=== PATIENT | male | born 1955 | race Two or more races ===

== ENCOUNTER 2020-12-18 16:35 | Inpatient (IN) | payer BC, OTHER ==
[2020-12-18] MEDS ORDERED: HYDROCODONE/ACETAMINOPHEN 5-325 MG TABLET PO ONE ×2 (16:54→21:00)
[2020-12-18] MEDS ORDERED: DIPH/PERTUSS(ACELL)/TETANUS VAC/PF 0.5 ML SYR (>=10YO) IM ONE ×2 (16:56→21:00)
--- NOTE | 2020-12-18 16:59 | ER Document Report ---
ED Medical Screen (RME) - General Chief Complaint: Foot Pain Stated Complaint: RIGHT FOOT PAIN Time Seen by Provider: 12/18/20 16:49 Primary Care Provider: MELO SOLORIO DPM [Primary Care Provider] - Follow up as needed - [facility] Notes: 12/18/20 16:55 65-year-old male presents to the emergency room today with right foot pain for the last 5 days with redness that has extended to his mid lower leg. Patient states he has a "hole at the bottom of my foot". Denies any trauma, any puncture wounds. She is unsure of his last tetanus shot. Patient states pain is shooting, intermittent and is 4 out of 5, worse when he is bearing weight. Patient is able to bear full weight. Patient was seen by his rig builder helper and advised to come to the emergency room. Patient denies any history of diabetes, hypertension or cholesterol. Patient reports 20 years ago or so he had surgery to his right second and third tarsal, he is unsure of what they did. Patient states he did take a Motrin this morning without relief. Reports there was pus coming from wound this morning. I have greeted and performed a rapid initial assessment of this patient. A comprehensive ED assessment and evaluation of the patient, analysis of test results and completion of the medical decision making process will be conducted by additional ED providers. PHYSICAL EXAMINATION: GENERAL: Well-appearing, well-nourished and in no acute distress. CV: s1, s2 regular LUNGS: No respiratory distress Musculoskeletal: Normal range of motion NEUROLOGICAL: Normal speech, normal gait. SKIN: Warm, Dry, normal turgor, no rashes or lesions noted. Plantar aspect of right foot with a 0.5cm x 0.5 cm wound with purulent drainage. No surrounding erythema induration. Distal pulses +2 bilaterally equally. Right foot erythema extends to right lower mid leg. Homans' sign is negative. The patient was evaluated during a global COVID-19 pandemic and that diagnosis was suspected/considered upon their initial presentation. Their evaluation, treatment and testing was consistent with current guidelines for patients who present with complaints or symptoms and may be related to COVID-19. Physical Exam - Vital signs Vitals: Temp Pulse Resp BP Pulse Ox 99.8 F 103 H 20 167/77 H 99 12/18/20 16:47 12/18/20 16:47 12/18/20 16:47 12/18/20 16:47 12/18/20 16:47 Course - Vital Signs Vital signs: Temp Pulse Resp BP Pulse Ox 99.8 F 103 H 20 167/77 H 99 12/18/20 16:47 12/18/20 16:47 12/18/20 16:47 12/18/20 16:47 12/18/20 16:47 Doctor's Discharge - Discharge Referrals: MELO SOLORIO DPM [Primary Care Provider] - Follow up as needed
--- NOTE | 2020-12-18 17:41 | RADIOLOGY REPORT (SQ) ---
EXAM DESCRIPTION: FOOT RIGHT COMPLETE IMAGES COMPLETED DATE/TIME: 12/18/2020 5:13 pm REASON FOR STUDY: posterior foot with tunneling, erythema, swelling COMPARISON: None. NUMBER OF VIEWS: Three views. TECHNIQUE: AP, lateral and oblique radiographic images acquired of the right foot. LIMITATIONS: None. FINDINGS: MINERALIZATION: Normal. BONES: No acute fracture or dislocation. No worrisome bone lesions. JOINTS: There appears to be subluxation of the 4th metatarsal phalangeal joint. SOFT TISSUES: Dorsal soft tissue swelling. OTHER: No other significant finding. IMPRESSION: Subluxation of the 4th metatarsal phalangeal joint. No acute osseous finding. Dorsal s oft tissue swelling. TECHNICAL DOCUMENTATION: JOB ID: [id number] 2010 [employer]- All Rights Reserved Reading location - IP/workstation name: [email or web address]
[2020-12-18 17:55] LABS: ABSOLUTE BASOPHILS # (AUTO) 0.1 10^3/uL (0.0-0.2); ABSOLUTE LYMPHOCYTES (AUTO) 1.1 10^3/uL (0.5-4.7); ABSOLUTE MONOCYTES (AUTO) 1.2 10^3/uL (0.1-1.4); ABSOLUTE NEUT (AUTO) 16.7 10^3/uL (1.7-8.2); BASOPHILS % (AUTO) 0.5 % (0-2); EOSINOPHILS % (AUTO) 0.2 % (0-6); HEMATOCRIT 43.7 % (37.9-51.0); LYMPHOCYTES % (AUTO) 5.8 % (13-45); MEAN CORPUSCULAR HGB CONC 34.3 g/dL (32.0-36.0); MEAN CORPUSCULAR VOLUME 90 fl (80-97); PLATELET COUNT 260 10^3/uL (150-450); RED BLOOD COUNT 4.84 10^6/uL (4.35-5.55); RED CELL DISTRIBUTION WIDTH 12.8 % (11.5-14.0); SEGMENTED NEUTROPHILS % (AUTO) 87.5 % (42-78); TOTAL CELLS COUNTED % (AUTO) 100 %; WHITE BLOOD COUNT 19.2 10^3/uL (4.0-10.5)
[2020-12-18 18:01] LABS: ALBUMIN 3.6 g/dL (3.5-5.0); ALKALINE PHOSPHATASE 96 U/L (38-126); ANION GAP 7 (5-19); ASPARTATE AMINO TRANSFERASE 49 U/L (17-59); BILIRUBIN,DIRECT 0.2 mg/dL (0.0-0.4); BILIRUBIN,TOTAL 0.8 mg/dL (0.2-1.3); BLOOD UREA NITROGEN 12 mg/dL (7-20); CALCIUM 9.5 mg/dL (8.4-10.2); CARBON DIOXIDE 31 mmol/L (22-30); CHLORIDE 99 mmol/L (98-107); GLUCOSE 111 mg/dL (75-110); POTASSIUM 4.6 mmol/L (3.6-5.0); TOTAL PROTEIN 6.9 g/dL (6.3-8.2)
--- NOTE | 2020-12-18 18:33 | RADIOLOGY REPORT (SQ) ---
EXAM DESCRIPTION: VENOUS UNILATERAL LOWER IMAGES COMPLETED DATE/TIME: 12/18/2020 6:25 pm REASON FOR STUDY: Right mid lower leg w/ swelling/erythema x1w COMPARISON: None. TECHNIQUE: Dynamic and static aponte scale and color images acquired of the right leg venous system. S elected spectral images acquired with additional compression and augmentation maneuvers. The contrala teral common femoral vein and saphenofemoral junction were also imaged. Images stored on PACS. LIMITATIONS: None. FINDINGS: COMMON FEMORAL: Normal phasicity, compression and augmentation. No visualized echogenic ma terial on aponte scale. No defects on color images. FEMORAL: Normal compression and augmentation. No visualized echogenic material on aponte scale. No defe cts on color images. POPLITEAL: Normal compression, augmentation. No visualized echogenic material on aponte scale. No defec ts on color images. CALF VESSELS: Normal compression, augmentation. No visualized echogenic material on aponte scale. No de fects on color images. GSV and SSV: Normal compression, augmentation. No visualized echogenic material on aponte scale. No def ects on color images. ANY DEEP VENOUS INSUFFICIENCY: Not evaluated. ANY EVIDENCE OF POPLITEAL CYST: No. OTHER: No other significant finding. CONTRALATERAL COMMON FEMORAL VEIN AND SAPHENOFEMORAL JUNCTION: Normal phasicity, compression and augmentation. No visualized echogenic material on aponte scale. No de fects on color images. IMPRESSION: NO EVIDENCE DVT OR SVT IN THE RIGHT LEG. TECHNICAL DOCUMENTATION: JOB ID: [id number] 2010 [employer]- All Rights Reserved Reading location - IP/workstation name: [email or web address]
--- NOTE | 2020-12-18 20:56 | ER Document Report ---
ED General - General Chief Complaint: Foot Pain Stated Complaint: RIGHT FOOT PAIN Time Seen by Provider: 12/18/20 16:49 - HPI Notes: 65-year-old male presents with ulcer to the bottom of his right foot. Patient states that he had a history of "dropped bone", he received a surgery about 20 years ago to correct the bone abnormality and really not have any issues with it aside from the past year. Patient states in the past year to 1.5 year he has had an ulcer develop in the same spot, which is at the plantar aspect of the fou rt toe. He states that for the past 3 weeks to 1 month the area has grown in size and is now a "hole", he has developed redness to his lower leg, and the wound is very foul-smelling, stating that when he takes off his boots he can barely stand the smell. He has never been on any antibiotics for this. Patient states that he does not have any medical history, though this is because he really does not see any doctors. He was complaining of pain and unable to work, which prompted a visit to a flooring sales manager today, patient states that the doctor took one look at it and sent him to the emergency department. - Related Data Allergies/Adverse Reactions: No Known Allergies Allergy (Verified 12/18/20 21:35) Past Medical History - General Information source: Patient - Social History Smoking Status: Current Every Day Smoker Frequency of alcohol use: Social Family History: Reviewed & Not Pertinent Review of Systems - Review of Systems Constitutional: denies: Chills, Fever EENT: No symptoms reported Cardiovascular: denies: Chest pain Respiratory: denies: Short of breath Gastrointestinal: denies: Abdominal pain Genitourinary: No symptoms reported Male Genitourinary: No symptoms reported Musculoskeletal: Joint swelling Skin: See HPI Hematologic/Lymphatic: No symptoms reported Neurological/Psychological: No symptoms reported Physical Exam - Vital signs Vitals: Temp Pulse Resp BP Pulse Ox 99.8 F 103 H 20 167/77 H 99 12/18/20 16:47 12/18/20 16:47 12/18/20 16:47 12/18/20 16:47 12/18/20 16:47 - General General appearance: Appears well, Alert In distress: None - HEENT Head: Normocephalic, Atraumatic Extraocular movements intact: Yes Pupils: PERRL - Respiratory Breath sounds: Normal - Cardiovascular Rhythm: Regular Heart sounds: Normal auscultation Pulses: Normal: Dorsalis pedis - Abdominal Inspection: Obese Tenderness: Nontender - Extremities Notes: There is an ulcer present to the plantar aspect of right foot, overlying fourth metatarsal head region. Bone is visible. Foul-smelling, serosanguineous discharge. There is erythema to the dorsum of the right foot extending above the ankle - Neurological Neuro grossly intact: Yes Cognition: Normal Orientation: AAOx4 - Psychological Associated symptoms: Normal affect - Skin Skin Temperature: Warm Course - Re-evaluation Re-evalutation: 65-year-old male presents with ulcer to the right foot, present for over 1 year, however foul-smelling drainage and increase in depth for the past 3 weeks to 1 month. On exam there is an ulcer present, bone is visible, there is a foul- smelling serosanguineous discharge. Wound culture collected. There is some cellulitic changes to the distal right leg as well. Leg is well perfused. Patient denies history of diabetes, the really does not see any doctors, I will add on an A1c to see if there is evidence of underlying DM. Will start with broad-spectrum coverage of Vanco Zosyn. Clinically I am concerned for an osteomyelitis. Afebrile, hemodynamically stable. Leukocytosis with left shift, elevated CRP present. Reviewed the triage process, patient on ultrasound done which is negative for DVT and a foot x-ray done which is negative for osseous abnormality. 12/18/20 23:08 A1c 5.1 12/18/20 23:[address] Tong, will see in consultation 12/18/20 23:[address] Retana for admission - Vital Signs Vital signs: Temp Pulse Resp BP Pulse Ox 98.9 F 92 19 157/76 H 98 12/18/20 22:54 12/18/20 22:54 12/18/20 22:54 12/18/20 22:54 12/18/20 22:54 - Laboratory Results Result Diagrams: 12/18/20 16:05 12/18/20 16:05 Laboratory Results Interpreted: 12/18/20 12/18/20 12/18/20 16:05 16:05 16:05 WBC 19.2 H Lymph % (Auto) 5.8 L Absolute Neuts (auto) 16.7 H Seg Neutrophils % 87.5 H Sodium 136.5 L Carbon Dioxide 31 H Glucose 111 H C-Reactive Protein 162.4 H Critical Laboratory Results Reviewed: No Critical Results - Radiology Results Critical Radiology Results Reviewed: No Critical Results Discharge - Discharge Clinical Impression: Cellulitis of right leg Foot ulcer with necrosis of bone Qualifiers: Laterality: right Qualified Code(s): 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
[2020-12-18] MEDS ORDERED: KETOROLAC TROMETHAMINE INJ/PF 30 MG/1 ML SDV IV ONE (21:23)
[2020-12-18] MEDS ORDERED: VANCOMYCIN HCL INJ 1000 MG VIAL IV ONE (21:25)
[2020-12-18] MEDS ORDERED: PIPERACILLIN/TAZOBACTAM 3.375 GM VIAL IV ONE (21:26)
--- NOTE | 2020-12-18 23:57 | PDOC CONSULTATION ---
Consultation Consult Date: 12/18/20 Attending physician:: MYRON RODGERS Provider Consulted: KEMAR CASTORENA Consult reason:: foot ulcer History of Present Illness Admission Date/PCP: 12/18/20 23:29 MELO SOLORIO DPM History of Present Illness: COLEMAN STAHL is a 65 year old male6 presents with ulcer to the bottom of his right foot. Patient states that he had a history of "dropped bone", he received a surgery about 20 years ago to correct the bone abnormality and really not have any issues with it aside from the past year. Patient states in the past year to 1.5 year he has had an ulcer develop in the same spot, which is at the plantar aspect of the fourth toe. He states that for the past 3 weeks to 1 month the area has grown in size and is now a "hole", he has developed redness to his lower leg, and the wound is very foul-smelling, stating that when he takes off his boots he can barely stand the smell. He has never been on any antibiotics for this. Patient states that he does not have any medical history, though this is because he really does not see any doctors. He was complaining of pain and unable to work, which prompted a visit to a bioinformatics technician today, patient states that the doctor took 1 look at it and sent him to the emergency department Past Surgical History Past Surgical History: Reports: Other - foot surgery Social History Smoking Status: Current Every Day Smoker Family History Parental Family History Reviewed: No Children Family History Reviewed: NA Sibling(s) Family History Reviewed.: NA Medication/Allergy Allergies/Adverse Reactions: No Known Allergies Allergy (Verified 12/18/20 21:35) Review of Systems Constitutional: PRESENT: fatigue Eyes: ABSENT: as per HPI, visual disturbances, other Ears: ABSENT: as per HPI, hearing changes, other Nose, Mouth, and Throat: ABSENT: as per HPI, headache(s), mouth pain, sore throat, vertigo, other Breasts: ABSENT: as per HPI, other Respiratory: ABSENT: as per HPI, cough, dyspnea, hemoptysis, sputum, other Gastrointestinal: ABSENT: as per HPI, abdominal pain, bloating, coffee ground emesis, constipation, diarrhea, dysphagia, heartburn, hematemesis, hematochezia, melena, nausea, vomiting, other Genitourinary: ABSENT: as per HPI, difficulty urinating, dysuria, hematuria, nocturia, other Musculoskeletal: PRESENT: as per HPI Integumentary: ABSENT: as per HPI, diaphoresis, erythema, lesions, pruritus, rash, wounds, other Neurological: ABSENT: as per HPI, abnormal gait, abnormal movements, abnormal speech, confusion, convulsions, dizziness, focal weakness, frequent falls, lack of coordination, memory loss, numbness, paresthesias, restless legs, syncope, tingling, tremor(s), vertigo, weakness, other Psychiatric: ABSENT: as per HPI, anxiety, depression, hallucinations, homidical ideation, suicidal ideation, other Endocrine: ABSENT: as per HPI, cold intolerance, flushing, heat intolerance, menstrual abnormalities, polydipsia, polyphagia, polyuria, other Allergic/Immunologic: ABSENT: as per HPI, seasonal rhinorrhea, other Physical Exam Vital Signs: Temp Pulse Resp BP Pulse Ox 98.9 F 92 19 157/76 H 98 12/18/20 22:54 12/18/20 22:54 12/18/20 22:54 12/18/20 22:54 12/18/20 22:54 Intake & Output 12/17/20 12/18/20 12/19/20 06:59 06:59 06:59 Weight 118.7 kg General appearance: PRESENT: no acute distress, morbidly obese Head exam: PRESENT: normocephalic Eye exam: PRESENT: EOMI Ear exam: PRESENT: normal external ear exam Mouth exam: PRESENT: moist Teeth exam: PRESENT: poor dentation Neck exam: PRESENT: full ROM Respiratory exam: PRESENT: clear to auscultation yumiko Cardiovascular exam: PRESENT: RRR Pulses: PRESENT: normal radial pulses, normal femoral pulses Vascular exam: PRESENT: normal capillary refill Breast: PRESENT: Normal GI/Abdominal exam: PRESENT: soft Rectal exam: PRESENT: deferred Extremities exam: PRESENT: other - right plantar foot with 2cm round draining ulcer foul smelling discharge with cellulitis extending up to mid calf Neurological exam: PRESENT: alert, oriented to person, oriented to place Psychiatric exam: PRESENT: appropriate affect Skin exam: PRESENT: dry Results Laboratory Results: 12/18/20 16:05 12/18/20 16:05 12/18/20 12/18/20 12/18/20 16:05 16:05 16:05 WBC 19.2 H RBC 4.84 Hgb 15.0 Hct 43.7 MCV 90 MCH 31.0 MCHC 34.3 RDW 12.8 Plt Count 260 Seg Neutrophils % 87.5 H Sodium 136.5 L Potassium 4.6 Chloride 99 Carbon Dioxide 31 H Anion Gap 7 BUN 12 Creatinine 0.95 Est GFR ( Amer) > 60 Glucose 111 H Calcium 9.5 Total Bilirubin 0.8 AST 49 Alkaline Phosphatase 96 C-Reactive Protein 162.4 H Total Protein 6.9 Albumin 3.6 Impressions: Foot X-Ray 12/18/20 16:53 IMPRESSION: Subluxation of the 4th metatarsal phalangeal joint. No acute osseous finding. Dorsal soft tissue swelling. Venous Doppler Study 12/18/20 16:54 IMPRESSION: NO EVIDENCE DVT OR SVT IN THE RIGHT LEG. 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 surgery wll follow.
[2020-12-19] MEDS ORDERED: PHARMACY COMMUNICATION ORDER MC NR (00:45)
[2020-12-19] MEDS ORDERED: DEXTROSE 40% GEL 15 GM TUBE PO PRN ×2 (00:51)
[2020-12-19] MEDS ORDERED: GLUCAGON,HUMAN RECOMB 1 MG INJ SUBCUT PRN (00:51)
[2020-12-19] MEDS ORDERED: DEXTROSE 50%-WATER 25 GM/50 ML DISP.SYRIN IV PRN ×2 (00:51)
[2020-12-19] MEDS ORDERED: MORPHINE SULFATE 10 MG/ML INJ IV PRN (00:56)
[2020-12-19] MEDS ORDERED: VANCOMYCIN HCL INJ 500 MG VIAL IV SCH (01:00)
--- NOTE | 2020-12-19 01:20 | PDOC H&P ---
History of Present Illness Admission Date/PCP: 12/18/20 23:29 MELO SOLORIO DPM Patient complains of: Right foot open ulcer History of Present Illness: COLEMAN STAHL is a 65 year old male He has some history of remote surgery on the right foot. He started experiencing pain and some callus formation on the plantar surface of the right foot several weeks ago. About 2 -3 weeks ago the area became open with some foul-smelling drainage and some pain. Couple days ago he was developing redness of the distal part of the right lower leg, chills and fever. He was started on broad-spectrum antibiotic in the emergency department and surgical consultation was requested by the emergency department physician. Patient is hemodynamically stable. When I arrived to see him he appeared to be comfortable after pain medication. Denied any additional complaint. Past Medical History Medical History: None Pulmonary Medical History: Reports: None EENT Medical History: Reports: None Neurological Medical History: Reports: None Endocrine Medical History: Reports: None Malignancy Medical History: Reports: None GI Medical History: Reports: None Musculoskeltal Medical History: Reports: None Psychiatric Medical History: Reports: None Infectious Medical History: Reports: None Past Surgical History Past Surgical History: Reports: Other - Right foot surgery decades ago Social History Information Source: Patient Smoking Status: Current Every Day Smoker Frequency of Alcohol Use: None Drugs: None Family History Family History: Reviewed & Not Pertinent Parental Family History Reviewed: Yes Children Family History Reviewed: Yes Sibling(s) Family History Reviewed.: Yes Medication/Allergy Allergies/Adverse Reactions: No Known Allergies Allergy (Verified 12/18/20 21:35) Review of Systems Constitutional: PRESENT: chills, fever(s) Eyes: ABSENT: visual disturbances Ears: ABSENT: hearing changes Respiratory: ABSENT: cough, hemoptysis Gastrointestinal: ABSENT: abdominal pain, constipation, diarrhea, hematemesis, hematochezia, nausea, vomiting Genitourinary: ABSENT: dysuria, hematuria Musculoskeletal: PRESENT: other - Right foot pain Integumentary: PRESENT: wounds - Open ulcer plantar surface of the right foot Neurological: ABSENT: abnormal gait, abnormal speech, confusion, dizziness, focal weakness, syncope Psychiatric: ABSENT: anxiety, depression, homidical ideation, suicidal ideation Endocrine: ABSENT: cold intolerance, heat intolerance, polydipsia, polyuria Hematologic/Lymphatic: ABSENT: easy bleeding, easy bruising Physical Exam Vital Signs: Temp Pulse Resp BP Pulse Ox 98.9 F 92 19 157/76 H 98 12/18/20 22:54 12/18/20 22:54 12/18/20 22:54 12/18/20 22:54 12/18/20 22:54 Intake & Output 12/17/20 12/18/20 12/19/20 06:59 06:59 06:59 Weight 118.7 kg General appearance: PRESENT: no acute distress Head exam: PRESENT: atraumatic Eye exam: PRESENT: conjunctiva pink, EOMI, PERRLA. ABSENT: scleral icterus Neck exam: ABSENT: JVD, thyromegaly Respiratory exam: PRESENT: clear to auscultation yumiko. ABSENT: rales, rhonchi, wheezes Cardiovascular exam: PRESENT: RRR. ABSENT: diastolic murmur, rubs, systolic murmur Pulses: PRESENT: normal dorsalis pedis pul Vascular exam: PRESENT: normal capillary refill GI/Abdominal exam: PRESENT: normal bowel sounds, soft. ABSENT: distended, guarding, mass, organolmegaly, rebound, tenderness Rectal exam: PRESENT: deferred Extremities exam: PRESENT: other - About 1.5 cm in diameter deep open ulcer distal lateral plantar surface of the right foot. Some minimal foul-smelling drainage. Surrounding tenderness with redness. Redness is involving the distal part of the right lower leg as well. Psychiatric exam: PRESENT: appropriate affect, normal mood. ABSENT: homicidal ideation, suicidal ideation Skin exam: PRESENT: rash - Redness of the right lower leg distal part Results Laboratory Results: 12/18/20 16:05 12/18/20 16:05 12/18/20 12/18/20 12/18/20 16:05 16:05 16:05 WBC 19.2 H RBC 4.84 Hgb 15.0 Hct 43.7 MCV 90 MCH 31.0 MCHC 34.3 RDW 12.8 Plt Count 260 Seg Neutrophils % 87.5 H Sodium 136.5 L Potassium 4.6 Chloride 99 Carbon Dioxide 31 H Anion Gap 7 BUN 12 Creatinine 0.95 Est GFR ( Amer) > 60 Glucose 111 H Calcium 9.5 Total Bilirubin 0.8 AST 49 Alkaline Phosphatase 96 C-Reactive Protein 162.4 H Total Protein 6.9 Albumin 3.6 Impressions: Foot X-Ray 12/18/20 16:53 IMPRESSION: Subluxation of the 4th metatarsal phalangeal joint. No acute osseous finding. Dorsal soft tissue swelling. Venous Doppler Study 12/18/20 16:54 IMPRESSION: NO EVIDENCE DVT OR SVT IN THE RIGHT LEG. Assessment and Plan - Diagnosis (1) Foot ulcer with necrosis of bone Qualifiers: Laterality: right Qualified Code(s): L97.514 - Non-pressure chronic ulcer of other part of right foot with necrosis of bone Is this a current diagnosis for this admission?: Yes Plan: Clinically it is highly suspicious he has osteomyelitis of the fourth or fifth or both metatarsal bones. Deep abscess cannot be excluded. He is going to have an MRI of the right foot. Continue Zosyn and vancomycin. Blood culture pending. Surgical consultation was requested. The patient is n.p.o. for possible surgery in the morning. DVT prophylaxis with compression device now, after surgery pharmacological prophylaxis. Pain control (2) Cellulitis of right leg Is this a current diagnosis for this admission?: Yes Plan: This is related to the open wound on the right foot. - Plan Summary Summary: Patient was admitted with open right foot wound with high suspicion for osteomy elitis and possibility of abscess. He is hemodynamically stable and not septic at this point. - Time Time Spent with patient: 25-34 minutes Anticipated Discharge Disposition: Home, Self Care Anticipated Discharge Timeframe: 5 to 6 day - Inpatient Certification Based on my medical assessment, after consideration of the patient's comorbidities, presenting symptoms, or acuity I expect that the services needed warrant INPATIENT care.: Yes I certify that my determination is in accordance with my understanding of Medicare's requirements for reasonable and necessary INPATIENT services [42 CFR 412.3e].: Yes Medical Necessity: Failure to Improve With Outpatient Therapy, Need for IV Antibiotics, Need for Surgery
[2020-12-19] MEDS: NORMAL SALINE 1000 ML 1,000 ML IV PRN ×2 (02:44→22:09)
[2020-12-19] MEDS ORDERED: PIPERACILLIN/TAZOBACTAM 3.375 GM VIAL IV ONE (02:53)
[2020-12-19] MEDS ORDERED: PIPERACILLIN/TAZOBACTAM 3.375 GM VIAL IV SCH (04:00)
[2020-12-19] MEDS: PIPERACILLIN SODIUM/TAZOBACTAM 3.375 GM in NORMAL SALINE 100 ML IV SCH ×4 (04:08→22:09)
[2020-12-19 07:16] LABS: ABSOLUTE BASOPHILS # (AUTO) 0.1 10^3/uL (0.0-0.2); ABSOLUTE EOSINOPHILS # (AUTO) 0.2 10^3/uL (0.0-0.6); ABSOLUTE LYMPHOCYTES (AUTO) 0.8 10^3/uL (0.5-4.7); ABSOLUTE MONOCYTES (AUTO) 0.7 10^3/uL (0.1-1.4); ABSOLUTE NEUT (AUTO) 8.3 10^3/uL (1.7-8.2); BASOPHILS % (AUTO) 1.2 % (0-2); EOSINOPHILS % (AUTO) 1.6 % (0-6); HEMATOCRIT 40.9 % (37.9-51.0); HEMOGLOBIN 13.8 g/dL (13.5-17.0); LYMPHOCYTES % (AUTO) 7.7 % (13-45); MEAN CORPUSCULAR HEMOGLOBIN 30.6 pg (27.0-33.4); MEAN CORPUSCULAR HGB CONC 33.8 g/dL (32.0-36.0); MEAN CORPUSCULAR VOLUME 91 fl (80-97); MONOCYTES % (AUTO) 6.7 % (3-13); PLATELET COUNT 185 10^3/uL (150-450); RED BLOOD COUNT 4.52 10^6/uL (4.35-5.55); RED CELL DISTRIBUTION WIDTH 12.8 % (11.5-14.0); SEGMENTED NEUTROPHILS % (AUTO) 82.8 % (42-78); TOTAL CELLS COUNTED % (AUTO) 100 %
[2020-12-19 07:34] LABS: BLOOD UREA NITROGEN 16 mg/dL (7-20); CALCIUM 8.4 mg/dL (8.4-10.2); CARBON DIOXIDE 30 mmol/L (22-30); CHLORIDE 100 mmol/L (98-107); GLUCOSE 107 mg/dL (75-110); POTASSIUM 3.8 mmol/L (3.6-5.0)
[2020-12-19 07:40] LABS: ANION GAP 5 (5-19)
--- NOTE | 2020-12-19 13:45 | PDOC PROGRESS REPORT ---
Subjective Date:: 12/19/20 Subjective:: The patient reports that he has not seen a primary care doctor in many years. He has been tending to this ulcer himself. There is still foul purulent drainage. There is still swelling and erythema. Interestingly, his hemoglobin A1c was only 5.1 and so he is not diabetic. Reason For Visit: CELLULITIS AND ABSCESS OF RIGHT FOOT Physical Exam Vital Signs: Temp Pulse Resp BP Pulse Ox 100.0 F 87 15 140/83 H 94 12/19/20 09:16 12/19/20 09:16 12/19/20 09:16 12/19/20 09:16 12/19/20 09:16 Intake & Output 12/18/20 12/19/20 12/20/20 06:59 06:59 06:59 Weight 118.7 kg General appearance: PRESENT: cooperative, mild distress, well-developed Head exam: PRESENT: atraumatic, normocephalic Ear exam: PRESENT: normal external ear exam. ABSENT: bleeding, drainage Mouth exam: PRESENT: other - Face mask in place Respiratory exam: PRESENT: clear to auscultation yumiko, symmetrical, unlabored. ABSENT: accessory muscle use, prolonged expiratory phas, rales, rhonchi, tachypnea, wheezes Cardiovascular exam: PRESENT: RRR, +S1, +S2. ABSENT: bradycardia, diastolic murmur, systolic murmur, tachycardia GI/Abdominal exam: PRESENT: normal bowel sounds, soft. ABSENT: distended, guarding, tenderness Rectal exam: PRESENT: deferred Gentrourinary exam: ABSENT: indwelling catheter Extremities exam: PRESENT: other - Right foot with bulky gauze dressing. Dressing taken down. Well-circumscribed ulcer with purulent drainage under the 4th metatarsal head. Swelling in the distal foot as well. Musculoskeletal exam: PRESENT: ambulatory, normal inspection. ABSENT: deformity, dislocation Neurological exam: PRESENT: alert, awake, oriented to person, oriented to place, oriented to time, oriented to situation, CN II-XII grossly intact. ABSENT: altered, motor sensory deficit Psychiatric exam: PRESENT: appropriate affect. ABSENT: agitated, anxious Focused psych exam: ABSENT: delusional, paranoid, restlessness Skin exam: PRESENT: erythema, other - Draining ulcer Results Laboratory Results: 12/19/20 05:57 12/19/20 05:57 12/18/20 12/18/20 12/18/20 16:05 16:05 16:05 WBC 19.2 H RBC 4.84 Hgb 15.0 Hct 43.7 MCV 90 MCH 31.0 MCHC 34.3 RDW 12.8 Plt Count 260 Seg Neutrophils % 87.5 H Sodium 136.5 L Potassium 4.6 Chloride 99 Carbon Dioxide 31 H Anion Gap 7 BUN 12 Creatinine 0.95 Est GFR ( Amer) > 60 Glucose 111 H Calcium 9.5 Total Bilirubin 0.8 AST 49 Alkaline Phosphatase 96 C-Reactive Protein 162.4 H Total Protein 6.9 Albumin 3.6 12/19/20 12/19/20 05:57 05:57 WBC 10.0 RBC 4.52 Hgb 13.8 Hct 40.9 MCV 91 MCH 30.6 MCHC 33.8 RDW 12.8 Plt Count 185 Seg Neutrophils % 82.8 H Sodium 134.5 L Potassium 3.8 Chloride 100 Carbon Dioxide 30 Anion Gap 5 BUN 16 Creatinine 1.06 Est GFR ( Amer) > 60 Glucose 107 Calcium 8.4 Total Bilirubin AST Alkaline Phosphatase C-Reactive Protein Total Protein Albumin Impressions: Foot X-Ray 12/18/20 16:53 IMPRESSION: Subluxation of the 4th metatarsal phalangeal joint. No acute osseous finding. Dorsal soft tissue swelling. Venous Doppler Study 12/18/20 16:54 IMPRESSION: NO EVIDENCE DVT OR SVT IN THE RIGHT LEG. 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 Is this a current diagnosis for this admission?: Yes (3) Cellulitis of right leg Is this a current diagnosis for this admission?: Yes (4) Abscess of right foot including toes Is this a current diagnosis for this admission?: Yes - Plan Summary Summary: (1) Osteomyelitis Qualifiers: Osteomyelitis type: subacute Osteomyelitis location: foot Laterality: right Qualified Code(s): M86.271 - Subacute osteomyelitis, right ankle and foot Is this a current diagnosis for this admission?: Yes (2) Foot ulcer with necrosis of bone Qualifiers: Laterality: right Qualified Code(s): L97.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 He is hemodynamically stable and not septic at this point. 12/19/2020 Osteomyelitis-MRI confirmed osteomyelitis of the distal fourth metatarsal as well as infection of the joint space of the metatarsal phalangeal joint and the fourth digit. There is also abscess formation in the interspace between the fourth and fifth metatarsals. There is still drainage from the lesion and it is quite tender. The patient is not diabetic. There was callus formation and this certainly could be due to pressure. The patient was providing care for the ulcer himself. He is currently on vancomycin and Zosyn. Based on the Gram stain of the culture it will be atypical polymicrobial drainage. We will continue vancomycin and Zosyn at this time. With the osteomyelitis he will either need long-term antibiotic therapy or surgical resection. Will discuss with surgery as to the best treatment plan. We do have a baseline C-reactive protein that we can follow as well. Foot ulcer with necrosis of the bone-likely there was a large callus which likely created a pressure ulcer. There is no way to be 100% sure. He is not diabetic which rules out that etiology. Surgery is consulted. Continue antibiotics at this time. I will ask wound care to see the patient to establish with outpatient wound care. Cellulitis of right leg-the infection is focused in the foot but erythema extends to the leg. Antibiotics as above. Abscess of the foot-see description above. - Time Time Spent with patient: 15-24 minutes Medications reviewed and adjusted accordingly: Yes Anticipated Discharge Disposition: Home, Self Care Anticipated Discharge Timeframe: Unknown
--- NOTE | 2020-12-19 14:02 | RADIOLOGY REPORT (SQ) ---
EXAM DESCRIPTION: MRI RT LOWER EXTREMITY COMBO IMAGES COMPLETED DATE/TIME: 12/19/2020 12:22 pm COMPARISON: Right foot radiograph, 12/18/2020 TECHNIQUE: Proton density, T1 and gradient noncontrast multiplanar imaging of the right foot. LIMITATIONS: None. FINDINGS: MARROW SIGNAL: There is abnormal bone marrow signal involving the distal 4th digit metatar nona consistent with osteomyelitis. Abnormal bone marrow signal also involves the proximal base 4th d igit proximal phalanx also suggestive of osteomyelitis. Otherwise normal bone marrow signal. JOINT EFFUSION: There is phlegmon and fluid at the 4th digit metatarsophalangeal joint space, with sm all rim enhancing abscess between the 4th and 5th digit metatarsals measuring 0.9 x 0.5 cm best seen on postcontrast axial images series 11, image 23. Small joint effusion is also seen at the 5th digit metatarsophalangeal joint space with no significant enhancement. This is probably reactive. SOFT TISSUES: There is diffuse subcutaneous edema involving the dorsal and plantar surface of the for efoot. Large ulceration at the plantar surface overlying the 4th digit metatarsal, probably with wou nd packing material. Skin thickening at the plantar surface overlying the 4th and 5th digits. OTHER: None. IMPRESSION: Osteomyelitis involving the distal 4th digit metatarsal and proximal base 4th digit prox imal phalanx. Phlegmon/septic joint space at the 4th digit metatarsophalangeal joint space. Small a bscess between the 4th and 5th digit metatarsals. TECHNICAL DOCUMENTATION: JOB ID: [id number] 2010 [employer]- All Rights Reserved REASON FOR STUDY: right foot abscess- osteomyelitis- right foot mri right foot abscess- osteomyelitis- right foot mri. Diffuse right foot pain with open wound, swelling and redness, abscess and drainage. Reading location - IP/workstation name: [email or web address]
--- NOTE | 2020-12-19 18:13 | Progress Note ---
Provider Note Provider Note: I had a chance to review the MRI and discussed the case with Dr. Blanchard. The patient will be going to surgery tomorrow morning. He will likely have portions of the fourth and fifth ray removed as well as the toes. This will obviate the need for long-term antibiotics. The patient will certainly need antibiotics p ostoperatively probably for a 7 to 10-day timeframe.
--- NOTE | 2020-12-19 18:33 | PDOC PROGRESS REPORT ---
Subjective Date:: 12/19/20 Subjective:: 65-year-old male with a long history of an ulcer to the right plantar foot. The patient reports foot pain and purulent drainage that has been present for greater than 1 month. He has erythema ascending up the ankle and lower leg. At present, the patient denies chest pain, shortness of breath, nausea, vomiting, headache, dizziness, orthostasis, abdominal pain, blurry vision. He is not a diabetic. He is a smoker. Reason For Visit: CELLULITIS AND ABSCESS OF RIGHT FOOT Physical Exam Vital Signs: Temp Pulse Resp BP Pulse Ox 99.0 F 78 16 122/72 90 L 12/19/20 12:15 12/19/20 12:15 12/19/20 12:15 12/19/20 12:15 12/19/20 12:15 Intake & Output 12/18/20 12/19/20 12/20/20 06:59 06:59 06:59 Weight 118.7 kg General appearance: PRESENT: no acute distress, cooperative. ABSENT: disheveled Head exam: PRESENT: atraumatic, normocephalic Eye exam: PRESENT: EOMI, PERRLA. ABSENT: scleral icterus Mouth exam: PRESENT: moist, neck supple Neck exam: ABSENT: meningismus, tenderness, thyromegaly, tracheal deviation Respiratory exam: PRESENT: unlabored. ABSENT: tachypnea, wheezes Cardiovascular exam: ABSENT: tachycardia GI/Abdominal exam: PRESENT: soft. ABSENT: distended, tenderness Rectal exam: PRESENT: deferred Extremities exam: PRESENT: other - Ulcer over the fourth metatarsal head. There is purulent material emanating from the ulcer. There is a mild amount of erythema extending on the dorsum of the foot, toward the ankle. Neurological exam: PRESENT: alert, awake, oriented to person, oriented to place, oriented to time, oriented to situation Psychiatric exam: ABSENT: agitated, anxious, depressed Focused psych exam: ABSENT: delusional Skin exam: ABSENT: cyanosis, jaundice Results Laboratory Results: 12/19/20 05:57 12/19/20 05:57 12/18/20 12/18/20 12/18/20 16:05 16:05 16:05 WBC 19.2 H RBC 4.84 Hgb 15.0 Hct 43.7 MCV 90 MCH 31.0 MCHC 34.3 RDW 12.8 Plt Count 260 Seg Neutrophils % 87.5 H Sodium 136.5 L Potassium 4.6 Chloride 99 Carbon Dioxide 31 H Anion Gap 7 BUN 12 Creatinine 0.95 Est GFR ( Amer) > 60 Glucose 111 H Calcium 9.5 Total Bilirubin 0.8 AST 49 Alkaline Phosphatase 96 C-Reactive Protein 162.4 H Total Protein 6.9 Albumin 3.6 12/19/20 12/19/20 05:57 05:57 WBC 10.0 RBC 4.52 Hgb 13.8 Hct 40.9 MCV 91 MCH 30.6 MCHC 33.8 RDW 12.8 Plt Count 185 Seg Neutrophils % 82.8 H Sodium 134.5 L Potassium 3.8 Chloride 100 Carbon Dioxide 30 Anion Gap 5 BUN 16 Creatinine 1.06 Est GFR ( Amer) > 60 Glucose 107 Calcium 8.4 Total Bilirubin AST Alkaline Phosphatase C-Reactive Protein Total Protein Albumin Impressions: Foot X-Ray 12/18/20 16:53 IMPRESSION: Subluxation of the 4th metatarsal phalangeal joint. No acute osseous finding. Dorsal soft tissue swelling. Venous Doppler Study 12/18/20 16:54 IMPRESSION: NO EVIDENCE DVT OR SVT IN THE RIGHT LEG. Lower Extremity MRI 12/19/20 00:00 IMPRESSION: Osteomyelitis involving the distal 4th digit metatarsal and proximal base 4th digit proximal phalanx. Phlegmon/septic joint space at the 4th digit metatarsophalangeal joint space. Small abscess between the 4th and 5th digit metatarsals. Assessment & Plan - Diagnosis (1) Abscess of right foot including toes Is this a current diagnosis for this admission?: Yes - Time Anticipated Discharge Disposition: Unknown Anticipated Discharge Timeframe: Unknown - Plan Summary Plan Summary: 65-year-old male with a deep-seated right foot infection. I have reviewed the MRI (images and reports). Patient has evidence of abscess development between the fourth and fifth metatarsals. He also has evidence of extensive osteomyelitis of the fourth digit and fourth metatarsal head. In light of these findings, I have recommended surgical resection of the fourth and fifth toes with debridement of the metatarsals and drainage of the abscess. The patient has agreed to this. Risk/benefits discussed, informed consent obtained, and all questions answered. N.p.o. after midnight. Plan for surgery first thing tomorrow morning.
[2020-12-19] MEDS: VANCOMYCIN HCL 1,000 MG in DEXTROSE 5%-WATER 250 ML IV SCH (18:35)
[2020-12-20] MEDS: PIPERACILLIN SODIUM/TAZOBACTAM 3.375 GM in NORMAL SALINE 100 ML IV SCH ×4 (02:22→21:23)
[2020-12-20] MEDS: VANCOMYCIN HCL 1,000 MG in DEXTROSE 5%-WATER 250 ML IV SCH ×3 (02:23→18:27)
[2020-12-20 07:28] LABS: ABSOLUTE BASOPHILS # (AUTO) 0.1 10^3/uL (0.0-0.2); ABSOLUTE EOSINOPHILS # (AUTO) 0.3 10^3/uL (0.0-0.6); ABSOLUTE LYMPHOCYTES (AUTO) 1.3 10^3/uL (0.5-4.7); ABSOLUTE MONOCYTES (AUTO) 0.9 10^3/uL (0.1-1.4); ABSOLUTE NEUT (AUTO) 5.4 10^3/uL (1.7-8.2); BASOPHILS % (AUTO) 0.9 % (0-2); EOSINOPHILS % (AUTO) 3.6 % (0-6); HEMATOCRIT 39.9 % (37.9-51.0); HEMOGLOBIN 13.4 g/dL (13.5-17.0); LYMPHOCYTES % (AUTO) 16.4 % (13-45); MEAN CORPUSCULAR HEMOGLOBIN 30.3 pg (27.0-33.4); MEAN CORPUSCULAR HGB CONC 33.5 g/dL (32.0-36.0); MEAN CORPUSCULAR VOLUME 91 fl (80-97); MONOCYTES % (AUTO) 11.6 % (3-13); PLATELET COUNT 206 10^3/uL (150-450); RED BLOOD COUNT 4.41 10^6/uL (4.35-5.55); RED CELL DISTRIBUTION WIDTH 12.8 % (11.5-14.0); SEGMENTED NEUTROPHILS % (AUTO) 67.5 % (42-78); TOTAL CELLS COUNTED % (AUTO) 100 %
[2020-12-20 07:49] LABS: BLOOD UREA NITROGEN 15 mg/dL (7-20); CALCIUM 8.5 mg/dL (8.4-10.2); CARBON DIOXIDE 30 mmol/L (22-30); CHLORIDE 103 mmol/L (98-107); GLUCOSE 118 mg/dL (75-110)
[2020-12-20 07:52] LABS: ANION GAP 2 (5-19)
[2020-12-20] MEDS ORDERED: FENTANYL CITRATE INJ/PF 100 MCG/2 ML AMPUL ONE (11:25)
[2020-12-20] MEDS ORDERED: EPHEDRINE SULFATE INJ 50 MG/1 ML AMPULE ONE (11:25)
[2020-12-20] MEDS ORDERED: MIDAZOLAM 2 MG/2 ML INJ ONE (11:25)
[2020-12-20] MEDS ORDERED: PROPOFOL INJ 200 MG/20 ML VIAL IV ONE (11:25)
[2020-12-20] MEDS ORDERED: LIDOCAINE 2% INJ (20 MG/ML) 20 ML MDV ONE (11:32)
[2020-12-20] MEDS: NORMAL SALINE 1000 ML 1,000 ML IV PRN (11:42)
[2020-12-20] MEDS ORDERED: DEXAMETHASONE SOD PHOSPHATE INJ 4 MG/1 ML VIAL ONE (11:43)
[2020-12-20] MEDS ORDERED: METOCLOPRAMIDE HCL INJ/PF 10 MG/2 ML SDV ONE (11:43)
[2020-12-20] MEDS ORDERED: ONDANSETRON HCL INJ/PF 4 MG/2 ML SDV ONE (11:43)
--- NOTE | 2020-12-20 12:16 | PDOC PROGRESS REPORT ---
Subjective Date:: 12/20/20 Subjective:: 65-year-old male with a long history of an ulcer to the right plantar foot. The patient reports foot pain and purulent drainage that has been present for greater than 1 month. He has erythema ascending up the ankle and lower leg. At present, the patient denies chest pain, shortness of breath, nausea, vomiting, headache, dizziness, orthostasis, abdominal pain, blurry vision. He is not a diabetic. He is a smoker. Reason For Visit: CELLULITIS AND ABSCESS OF RIGHT FOOT Physical Exam Vital Signs: Temp Pulse Resp BP Pulse Ox 98.2 F 58 L 18 136/76 H 98 12/20/20 11:49 12/20/20 11:49 12/20/20 11:49 12/20/20 11:49 12/20/20 11:49 Intake & Output 12/19/20 12/20/20 12/21/20 06:59 06:59 06:59 Intake Total 2750 1000 Balance 2750 1000 Weight 118.7 kg 118.7 kg Exam: General appearance: PRESENT: no acute distress, cooperative. ABSENT: disheveled Head exam: PRESENT: atraumatic, normocephalic Eye exam: PRESENT: EOMI, PERRLA. ABSENT: scleral icterus Mouth exam: PRESENT: moist, neck supple Neck exam: ABSENT: meningismus, tenderness, thyromegaly, tracheal deviation Respiratory exam: PRESENT: unlabored. ABSENT: tachypnea, wheezes Cardiovascular exam: ABSENT: tachycardia GI/Abdominal exam: PRESENT: soft. ABSENT: distended, tenderness Rectal exam: PRESENT: deferred Extremities exam: PRESENT: other - Ulcer over the fourth metatarsal head. There is purulent material emanating from the ulcer. There is a mild amount of erythema extending on the dorsum of the foot, toward the ankle. Neurological exam: PRESENT: alert, awake, oriented to person, oriented to place, oriented to time, oriented to situation Psychiatric exam: ABSENT: agitated, anxious, depressed Focused psych exam: ABSENT: delusional Skin exam: ABSENT: cyanosis, jaundice Results Laboratory Results: 12/20/20 06:31 12/20/20 06:31 12/20/20 12/20/20 06:31 06:31 WBC 8.0 RBC 4.41 Hgb 13.4 L Hct 39.9 MCV 91 MCH 30.3 MCHC 33.5 RDW 12.8 Plt Count 206 Seg Neutrophils % 67.5 Sodium 134.9 L Potassium 4.0 Chloride 103 Carbon Dioxide 30 Anion Gap 2 L BUN 15 Creatinine 1.08 Est GFR ( Amer) > 60 Glucose 118 H Calcium 8.5 Magnesium 1.9 12/18/20 21:15 Foot - Heel Gram Stain - Final Impressions: Foot X-Ray 12/18/20 16:53 IMPRESSION: Subluxation of the 4th metatarsal phalangeal joint. No acute osseous finding. Dorsal soft tissue swelling. Venous Doppler Study 12/18/20 16:54 IMPRESSION: NO EVIDENCE DVT OR SVT IN THE RIGHT LEG. Lower Extremity MRI 12/19/20 00:00 IMPRESSION: Osteomyelitis involving the distal 4th digit metatarsal and proxima l base 4th digit proximal phalanx. Phlegmon/septic joint space at the 4th digit metatarsophalangeal joint space. Small abscess between the 4th and 5th digit metatarsals. Assessment & Plan - Diagnosis (1) Abscess of right foot including toes Is this a current diagnosis for this admission?: Yes - Time Anticipated Discharge Disposition: Home, Self Care Anticipated Discharge Timeframe: unknown - Plan Summary Plan Summary: 65-year-old male with a deep-seated right foot infection. I have reviewed the MRI (images and reports). Patient has evidence of abscess development between the fourth and fifth metatarsals. He also has evidence of extensive osteomyelitis of the fourth digit and fourth metatarsal head. In light of these findings, I have recommended surgical resection of the fourth and fifth toes with debridement of the metatarsals and drainage of the abscess. The patient has agreed to this. Risk/benefits discussed, informed consent obtained, and all questions answered.
[2020-12-20] MEDS ORDERED: BUPIVACAINE HCL 0.25 % INJ/PF (2.5 MG/1 ML) 30 ML VIAL ONE (12:31)
[2020-12-20] MEDS ORDERED: LIDOCAINE 1% INJ-PF (10 MG/ML) 30 ML SDV ONE (12:31)
[2020-12-20] MEDS ORDERED: DIPHENHYDRAMINE HCL 50 MG/ML VIAL IV PRN (13:21)
[2020-12-20] MEDS ORDERED: MEPERIDINE HCL/PF INJ 25 MG/1 ML DISP.SYRIN IV PRN (13:21)
[2020-12-20] MEDS ORDERED: FENTANYL CITRATE INJ/PF 100 MCG/2 ML AMPUL IV PRN ×3 (13:21)
[2020-12-20] MEDS ORDERED: MORPHINE SULFATE 10 MG/ML INJ IV PRN ×2 (13:21→14:01)
[2020-12-20] MEDS ORDERED: PROMETHAZINE HCL INJ 25 MG/1 ML VIAL IV PRN ×2 (13:21)
[2020-12-20] MEDS ORDERED: OXYCODONE-ACETAMINOPHEN 5-325 MG TABLET PO PRN ×2 (13:21)
--- NOTE | 2020-12-20 13:53 | Operative Report ---
Nonrecallable Operative Report DATE OF SURGERY: 12/20/20 PREOPERATIVE DIAGNOSIS: Abscess of the right foot, with associated osteomyelitis POSTOPERATIVE DIAGNOSIS: Same as above OPERATION: 1. Incision and drainage of right foot abscess. 2. Ray amputation of fourth and fifth right toe and metatarsal. SURGEON: WILLA BENNETT ANESTHESIA: GA TISSUE REMOVED OR ALTERED: Fourth and fifth toes, with attached metatarsal COMPLICATIONS: None apparent ESTIMATED BLOOD LOSS: Minimal PROCEDURE: Drains/implants: 4 x 4 soaked in Betadine. Procedure in detail: After informed consent was obtained, the patient was brought into the operating room and laid in the supine position. The area of the right foot was prepped and draped in a normal sterile fashion. An incision was created around the fourth and fifth toes, and extended down on the plantar surface. The large ulcer was completely excised. Next the incision was carried proximally up the dorsal surface of the foot. The wound was opened, down to the fourth and fifth metatarsals. There was a large abscess situated immediately between the fourth and fifth metatarsals. This was opened, irrigated, and cleaned. Next, dissection was carried proximally, so as to remove all infected and suspicious appearing tissue. The fourth and fifth metatarsals were divided proximally using large bone cutters. The metatarsal portions as well as the joint space, abscess, ulcer, and toes were excised as 1 large piece. Once this was removed, the wound was inspected. It was found to be free of any residual abscess or infection. Hemostasis was ensured using electrocautery. The wound was then reapproximated on the plantar surface. The subcutaneous tissues were closed using 2-0 Vicryl suture in simple interrupted fashion. The overlying skin was closed using 2-0 nylon suture in simple interrupted fashion. The proximal portion onto the foot was also closed in similar fashion (2 layers). A large portion of the wound (at the area adjacent to the toes) was left open, to accommodate Betadine soaked packing. A 4 x 4 was soaked in Betadine, and packed into the wound. A dressing was then placed, and the procedure was concluded. All sponge, instrument, and needle counts were correct x2. Condition: Stable.
[2020-12-20] MEDS ORDERED: HYDROCODONE/ACETAMINOPHEN 10-325 MG TABLET PO PRN (14:01)
--- NOTE | 2020-12-20 17:21 | PDOC PROGRESS REPORT ---
Subjective Date:: 12/20/20 Subjective:: Patient appears comfortable this evening. Right foot is bandaged. He underwent resection of the fourth and fifth ray secondary to bony destruction from osteomyelitis and abscess formation. He is not in any significant pain at this time. Reason For Visit: CELLULITIS AND ABSCESS OF RIGHT FOOT Physical Exam Vital Signs: Temp Pulse Resp BP Pulse Ox 98.0 F 74 16 136/88 H 97 12/20/20 14:22 12/20/20 14:22 12/20/20 14:22 12/20/20 14:22 12/20/20 14:22 Intake & Output 12/19/20 12/20/20 12/21/20 06:59 06:59 06:59 Intake Total 2750 1850 Balance 2750 1850 Weight 118.7 kg 118.7 kg General appearance: PRESENT: no acute distress, well-developed Head exam: PRESENT: atraumatic, normocephalic Ear exam: PRESENT: normal external ear exam. ABSENT: bleeding, drainage Mouth exam: PRESENT: moist, tongue midline Respiratory exam: PRESENT: clear to auscultation yumiko, symmetrical, unlabored. ABSENT: rales, rhonchi, tachypnea, wheezes Cardiovascular exam: PRESENT: RRR, +S1, +S2. ABSENT: bradycardia, diastolic murmur, irregular rhythm, systolic murmur, tachycardia GI/Abdominal exam: PRESENT: normal bowel sounds, soft. ABSENT: tenderness Rectal exam: PRESENT: deferred Gentrourinary exam: ABSENT: indwelling catheter Extremities exam: PRESENT: other - Right foot wrapped in Kushal bandage. Fourth and fifth toes missing. Patient had fourth and fifth ray amputation. Musculoskeletal exam: PRESENT: deformity - Status post amputation as above. ABSENT: ambulatory - Nonweightbearing on the right foot at this time. Neurological exam: PRESENT: alert, awake, oriented to person, oriented to place, oriented to time, oriented to situation, CN II-XII grossly intact. ABSENT: altered Psychiatric exam: PRESENT: appropriate affect. ABSENT: agitated, anxious Focused psych exam: ABSENT: delusional, paranoid, restlessness Results Laboratory Results: 12/20/20 06:31 12/20/20 06:31 12/20/20 12/20/20 06:31 06:31 WBC 8.0 RBC 4.41 Hgb 13.4 L Hct 39.9 MCV 91 MCH 30.3 MCHC 33.5 RDW 12.8 Plt Count 206 Seg Neutrophils % 67.5 Sodium 134.9 L Potassium 4.0 Chloride 103 Carbon Dioxide 30 Anion Gap 2 L BUN 15 Creatinine 1.08 Est GFR ( Amer) > 60 Glucose 118 H Calcium 8.5 Magnesium 1.9 12/18/20 21:15 Foot - Heel Gram Stain - Final Impressions: Foot X-Ray 12/18/20 16:53 IMPRESSION: Subluxation of the 4th metatarsal phalangeal joint. No acute osseous finding. Dorsal soft tissue swelling. Venous Doppler Study 12/18/20 16:54 IMPRESSION: NO EVIDENCE DVT OR SVT IN THE RIGHT LEG. Lower Extremity MRI 12/19/20 00:00 IMPRESSION: Osteomyelitis involving the distal 4th digit metatarsal and proximal base 4th digit proximal phalanx. Phlegmon/septic joint space at the 4th digit metatarsophalangeal joint space. Small abscess between the 4th and 5th digit metatarsals. 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 Is this a current diagnosis for this admission?: Yes (3) Cellulitis of right leg Is this a current diagnosis for this admission?: Yes (4) Abscess of right foot including toes Is this a current diagnosis for this admission?: Yes (5) Hammertoes of both feet Is this a current diagnosis for this admission?: Yes - Plan Summary Summary: (1) Osteomyelitis Qualifiers: Osteomyelitis type: subacute Osteomyelitis location: foot Laterality: right Qualified Code(s): M86.271 - Subacute osteomyelitis, right ankle and foot Is this a current diagnosis for this admission?: Yes (2) Foot ulcer with necrosis of bone Qualifiers: Laterality: right Qualified Code(s): 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 He is hemodynamically stable and not septic at this point. 12/19/2020 Osteomyelitis-MRI confirmed osteomyelitis of the distal fourth metatarsal as well as infection of the joint space of the metatarsal phalangeal joint and the fourth digit. There is also abscess formation in the interspace between the fourth and fifth metatarsals. There is still drainage from the lesion and it is quite tender. The patient is not diabetic. There was callus formation and this certainly could be due to pressure. The patient was providing care for the ulcer himself. He is currently on vancomycin and Zosyn. Based on the Gram stain of the culture it will be atypical polymicrobial drainage. We will continue vancomycin and Zosyn at this time. With the osteomyelitis he will either need long-term antibiotic therapy or surgical resection. Will discuss with surgery as to the best treatment plan. We do have a baseline C-reactive pr otein that we can follow as well. Foot ulcer with necrosis of the bone-likely there was a large callus which likely created a pressure ulcer. There is no way to be 100% sure. He is not diabetic which rules out that etiology. Surgery is consulted. Continue antibiotics at this time. I will ask wound care to see the patient to establish with outpatient wound care. Cellulitis of right leg-the infection is focused in the foot but erythema extends to the leg. Antibiotics as above. Abscess of the foot-see description above. 12/20/2020 Postsurgical resection of fourth and fifth rays with toes. Source control of osteomyelitis/infection. The patient will still require likely 7 days antibiotics postop. Hammertoes-I reviewed the pathophysiology of how hammertoes can cause increased pressure and callus formation under the metatarsal heads. This is the most likely mechanism by which the patient developed a callus and subsequent ulceration with infection. We spoke of nonweightbearing of his right foot with the likelihood of heel weightbearing initially. I explained that a Darco offloading shoe would be very helpful. I also reviewed orthotics with the patient. Because of the anatomy he would benefit from molded insoles for his boots. This will try and evenly distribute the pressure. I also suggested that he consider podiatry visits if he in fact builds up large calluses under the metatarsal heads. We discussed how the current events should be significant motivation to take bet ter care of his feet and himself. - Time Time Spent with patient: 15-24 minutes Medications reviewed and adjusted accordingly: Yes Anticipated Discharge Disposition: Home, Self Care Anticipated Discharge Timeframe: Unknown
[2020-12-20 18:53] LABS: VANCOMYCIN,TROUGH 13.5 ug/mL (5.0-20.0)
[2020-12-20] MEDS: KETOROLAC TROMETHAMINE INJ/PF 30 MG/1 ML SDV IV SCH (21:23)
[2020-12-21] MEDS: VANCOMYCIN HCL 1,000 MG in DEXTROSE 5%-WATER 250 ML IV SCH ×3 (02:12→17:51)
[2020-12-21] MEDS: PIPERACILLIN SODIUM/TAZOBACTAM 3.375 GM in NORMAL SALINE 100 ML IV SCH ×4 (02:12→21:45)
[2020-12-21] MEDS: KETOROLAC TROMETHAMINE INJ/PF 30 MG/1 ML SDV IV SCH ×3 (05:54→21:46)
--- NOTE | 2020-12-21 08:31 | PDOC PROGRESS REPORT ---
Subjective Date:: 12/21/20 Subjective:: feels ok, min pain Reason For Visit: CELLULITIS AND ABSCESS OF RIGHT FOOT Physical Exam Vital Signs: Temp Pulse Resp BP Pulse Ox 98.3 F 83 20 171/84 H 97 12/21/20 07:39 12/21/20 07:39 12/21/20 07:39 12/21/20 07:39 12/21/20 07:39 Intake & Output 12/20/20 12/21/20 12/22/20 06:59 06:59 06:59 Intake Total 2750 4745 Balance 2750 4745 Weight 118.7 kg 119.4 kg General appearance: PRESENT: no acute distress Head exam: PRESENT: normocephalic Eye exam: PRESENT: EOMI Ear exam: PRESENT: normal external ear exam Mouth exam: PRESENT: moist Teeth exam: PRESENT: poor dentation Neck exam: PRESENT: full ROM Respiratory exam: PRESENT: clear to auscultation yumiko Cardiovascular exam: PRESENT: RRR Pulses: PRESENT: +1 pedal pulses bilateral Breast: PRESENT: Normal GI/Abdominal exam: PRESENT: soft Rectal exam: PRESENT: deferred Extremities exam: PRESENT: other - rt lat foot wound clean, pack removed Musculoskeletal exam: PRESENT: full ROM Neurological exam: PRESENT: alert, awake, oriented to person, oriented to place Psychiatric exam: PRESENT: appropriate affect Skin exam: PRESENT: dry Results Laboratory Results: 12/20/20 06:31 12/20/20 06:31 12/18/20 21:15 Foot - Heel Gram Stain - Final Impressions: Foot X-Ray 12/18/20 16:53 IMPRESSION: Subluxation of the 4th metatarsal phalangeal joint. No acute osseous finding. Dorsal soft tissue swelling. Venous Doppler Study 12/18/20 16:54 IMPRESSION: NO EVIDENCE DVT OR SVT IN THE RIGHT LEG. Lower Extremity MRI 12/19/20 00:00 IMPRESSION: Osteomyelitis involving the distal 4th digit metatarsal and proximal base 4th digit proximal phalanx. Phlegmon/septic joint space at the 4th digit metatarsophalangeal joint space. Small abscess between the 4th and 5th digit metatarsals. 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
--- NOTE | 2020-12-21 12:41 | PDOC PROGRESS REPORT ---
Subjective Date:: 12/21/20 Subjective:: Resting comfortably in bed. No significant pain at this time. Surgery was alre rafael in to assess the wound. 3 times daily dressing changes will continue as well antibiotics. Reason For Visit: CELLULITIS AND ABSCESS OF RIGHT FOOT Status post amputation right fourth and fifth toes and partial metatarsal Physical Exam Vital Signs: Temp Pulse Resp BP Pulse Ox 97.6 F 63 19 170/76 H 96 12/21/20 11:48 12/21/20 11:48 12/21/20 11:48 12/21/20 11:48 12/21/20 11:48 Intake & Output 12/20/20 12/21/20 12/22/20 06:59 06:59 06:59 Intake Total 2750 4745 260 Output Total 600 Balance 2750 4745 -340 Weight 118.7 kg 119.4 kg General appearance: PRESENT: no acute distress, cooperative, well-developed Head exam: PRESENT: atraumatic, normocephalic Eye exam: PRESENT: conjunctiva pink, EOMI. ABSENT: scleral icterus Ear exam: PRESENT: normal external ear exam. ABSENT: bleeding, drainage Mouth exam: PRESENT: moist, tongue midline Teeth exam: ABSENT: poor dentation Respiratory exam: PRESENT: clear to auscultation yumiko, symmetrical, unlabored. ABSENT: accessory muscle use, prolonged expiratory phas, rales, rhonchi, tachypnea, wheezes Cardiovascular exam: PRESENT: RRR, +S1, +S2. ABSENT: bradycardia, diastolic murmur, irregular rhythm, systolic murmur, tachycardia GI/Abdominal exam: PRESENT: normal bowel sounds, soft. ABSENT: distended, guarding, tenderness Rectal exam: PRESENT: deferred Gentrourinary exam: ABSENT: indwelling catheter Extremities exam: PRESENT: other - Bulky dressing right foot. ABSENT: clubbing Musculoskeletal exam: PRESENT: deformity - Status post amputation right fourth and fifth toes and partial metatarsal, tenderness Neurological exam: PRESENT: alert, awake, oriented to person, oriented to place, oriented to time, oriented to situation, CN II-XII grossly intact. ABSENT: altered Psychiatric exam: PRESENT: appropriate affect. ABSENT: agitated, anxious Focused psych exam: ABSENT: delusional, paranoid, restlessness Skin exam: PRESENT: dry, erythema - Erythema right foot significantly decreased, normal color, warm. ABSENT: rash Results Laboratory Results: 12/20/20 06:31 12/20/20 06:31 12/18/20 21:15 Foot - Heel Gram Stain - Final 12/18/20 21:15 Foot - Heel Wound Culture - Final Proteus Mirabilis Skin Gavi Impressions: Foot X-Ray 12/18/20 16:53 IMPRESSION: Subluxation of the 4th metatarsal phalangeal joint. No acute osseous finding. Dorsal soft tissue swelling. Venous Doppler Study 12/18/20 16:54 IMPRESSION: NO EVIDENCE DVT OR SVT IN THE RIGHT LEG. Lower Extremity MRI 12/19/20 00:00 IMPRESSION: Osteomyelitis involving the distal 4th digit metatarsal and proximal base 4th digit proximal phalanx. Phlegmon/septic joint space at the 4th digit metatarsophalangeal joint space. Small abscess between the 4th and 5th digit metatarsals. 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 Is this a current diagnosis for this admission?: Yes (3) Cellulitis of right leg Is this a current diagnosis for this admission?: Yes (4) Abscess of right foot including toes Is this a current diagnosis for this admission?: Yes (5) Hammertoes of both feet Is this a current diagnosis for this admission?: Yes - Plan Summary Summary: (1) Osteomyelitis Qualifiers: Osteomyelitis type: subacute Osteomyelitis location: foot Laterality: right Qualified Code(s): M86.271 - Subacute osteomyelitis, right ankle and foot Is this a current diagnosis for this admission?: Yes (2) Foot ulcer with necrosis of bone Qualifiers: Laterality: right Qualified Code(s): 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 He is hemodynamically stable and not septic at this point. 12/19/2020 Osteomyelitis-MRI confirmed osteomyelitis of the distal fourth metatarsal as well as infection of the joint space of the metatarsal phalangeal joint and the fourth digit. There is also abscess formation in the interspace between the fourth and fifth metatarsals. There is still drainage from the lesion and it is quite tender. The patient is not diabetic. There was callus formation and this certainly could be due to pressure. The patient was providing care for the ulcer himself. He is currently on vancomycin and Zosyn. Based on the Gram stain of the culture it will be atypical polymicrobial drainage. We will continue vancomycin and Zosyn at this time. With the osteomyelitis he will either need long-term antibiotic therapy or surgical resection. Will discuss with surgery as to the best treatment plan. We do have a baseline C-reactive protein that we can follow as well. Foot ulcer with necrosis of the bone-likely there was a large callus which likely created a pressure ulcer. There is no way to be 100% sure. He is not diabetic which rules out that etiology. Surgery is consulted. Continue a ntibiotics at this time. I will ask wound care to see the patient to establish with outpatient wound care. Cellulitis of right leg-the infection is focused in the foot but erythema extends to the leg. Antibiotics as above. Abscess of the foot-see description above. 12/20/2020 Postsurgical resection of fourth and fifth rays with toes. Source control of osteomyelitis/infection. The patient will still require likely 7 days antibiotics postop. Hammertoes-I reviewed the pathophysiology of how hammertoes can cause increased pressure and callus formation under the metatarsal heads. This is the most likely mechanism by which the patient developed a callus and subsequent ulceration with infection. We spoke of nonweightbearing of his right foot with the likelihood of heel weightbearing initially. I explained that a Darco offloading shoe would be very helpful. I also reviewed orthotics with the patient. Because of the anatomy he would benefit from molded insoles for his boots. This will try and evenly distribute the pressure. I also suggested that he consider podiatry visits if he in fact builds up large calluses under the metatarsal heads. We discussed how the current events should be significant motivation to take better care of his feet and himself. 12/21/2020 Postop day 1-infected bone and necrotic tissue removed from the right foot. Per surgery assessment the wound bed is clean. They are continuing moist saline gauze dressings 3 times daily. The patient should be heel weightbearing only for the time being. Unfortunately he admitted that he walks to the bathroom. He should at least have a postop shoe on. I will call the patient's nurse and request this. We discussed possible referral to the wound care center. The patient feels that he has enough support at home to change the dressings. I reminded him that it has to be done in a clean environment to prevent infection of this tissue. We will discuss further prior to discharge. Infection-thus far Proteus mirabilis and skin gavi have been identified. There is a second surgical specimen that has gram-negative rods (likely the Proteus) and gram-positive cocci. It is likely I will be able to narrow the spectrum of the antibiotics. The Proteus was fairly sensitive and converting to oral antibiotic should not be a problem. Hammertoes-once again I strongly recommended the patient obtain orthotics or at least orthotic insoles. He needs to offload pressure from the metatarsal heads or he will just get more ulcers. - Time Time Spent with patient: 15-24 minutes Medications reviewed and adjusted accordingly: Yes Anticipated Discharge Disposition: Home, Self Care Anticipated Discharge Timeframe: within 72 hours
[2020-12-22] MEDS: VANCOMYCIN HCL 1,000 MG in DEXTROSE 5%-WATER 250 ML IV SCH ×3 (03:13→17:34)
[2020-12-22] MEDS: PIPERACILLIN SODIUM/TAZOBACTAM 3.375 GM in NORMAL SALINE 100 ML IV SCH ×4 (05:42→21:58)
[2020-12-22] MEDS: KETOROLAC TROMETHAMINE INJ/PF 30 MG/1 ML SDV IV SCH ×3 (05:42→21:58)
[2020-12-22 06:22] LABS: ANION GAP 5 (5-19); BLOOD UREA NITROGEN 20 mg/dL (7-20); C-REACTIVE PROTEIN 36.2 mg/L (<10.0); CALCIUM 8.7 mg/dL (8.4-10.2); CARBON DIOXIDE 25 mmol/L (22-30); CHLORIDE 107 mmol/L (98-107); GLUCOSE 115 mg/dL (75-110); POTASSIUM 4.3 mmol/L (3.6-5.0)
--- NOTE | 2020-12-22 11:12 | PDOC PROGRESS REPORT ---
Subjective Date:: 12/22/20 Subjective:: Patient is resting comfortably in bed. Serous drainage noted under the Kerlix d ressing. Reason For Visit: CELLULITIS AND ABSCESS OF RIGHT FOOT Physical Exam Vital Signs: Temp Pulse Resp BP Pulse Ox 98.2 F 74 18 174/80 H 96 12/22/20 07:21 12/22/20 04:14 12/22/20 04:14 12/22/20 04:14 12/22/20 04:14 Intake & Output 12/21/20 12/22/20 12/23/20 06:59 06:59 06:59 Intake Total 4745 760 250 Output Total 600 Balance 4745 160 250 Weight 119.4 kg 119.4 kg General appearance: PRESENT: no acute distress, cooperative, well-developed Head exam: PRESENT: atraumatic, normocephalic Eye exam: PRESENT: conjunctiva pink. ABSENT: scleral icterus Ear exam: PRESENT: normal external ear exam. ABSENT: bleeding, drainage Mouth exam: PRESENT: moist, tongue midline Respiratory exam: PRESENT: rales - At bases, symmetrical, unlabored. ABSENT: rhonchi, tachypnea, wheezes Cardiovascular exam: PRESENT: RRR, +S1, +S2. ABSENT: bradycardia, diastolic murmur, irregular rhythm, systolic murmur, tachycardia GI/Abdominal exam: PRESENT: normal bowel sounds, soft. ABSENT: distended, tenderness Rectal exam: PRESENT: deferred Gentrourinary exam: ABSENT: indwelling catheter Extremities exam: ABSENT: pedal edema Musculoskeletal exam: PRESENT: ambulatory, deformity - No amputation Neurological exam: PRESENT: alert, awake, oriented to person, oriented to place, oriented to time, oriented to situation, CN II-XII grossly intact. ABSENT: altered Psychiatric exam: PRESENT: appropriate affect. ABSENT: agitated, anxious Focused psych exam: ABSENT: delusional, paranoid, restlessness Skin exam: PRESENT: dry, normal color, warm. ABSENT: rash Results Laboratory Results: 12/20/20 06:31 12/22/20 05:15 12/22/20 05:15 Sodium 137.2 Potassium 4.3 Chloride 107 Carbon Dioxide 25 Anion Gap 5 BUN 20 Creatinine 1.34 H Est GFR ( Amer) > 60 Glucose 115 H Calcium 8.7 C-Reactive Protein 36.2 H 12/18/20 21:15 Foot - Heel Gram Stain - Final 12/18/20 21:15 Foot - Heel Wound Culture - Final Proteus Mirabilis Skin Haily Impressions: Foot X-Ray 12/18/20 16:53 IMPRESSION: Subluxation of the 4th metatarsal phalangeal joint. No acute osseous finding. Dorsal soft tissue swelling. Venous Doppler Study 12/18/20 16:54 IMPRESSION: NO EVIDENCE DVT OR SVT IN THE RIGHT LEG. Lower Extremity MRI 12/19/20 00:00 IMPRESSION: Osteomyelitis involving the distal 4th digit metatarsal and proximal base 4th digit proximal phalanx. Phlegmon/septic joint space at the 4th digit metatarsophalangeal joint space. Small abscess between the 4th and 5th digit metatarsals. 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 Is this a current diagnosis for this admission?: Yes (3) Cellulitis of right leg Is this a current diagnosis for this admission?: Yes (4) Abscess of right foot including toes Is this a current diagnosis for this admission?: Yes (5) Hammertoes of both feet Is this a current diagnosis for this admission?: Yes - Plan Summary Summary: (1) Osteomyelitis Qualifiers: Osteomyelitis type: subacute Osteomyelitis location: foot Laterality: right Qualified Code(s): M86.271 - Subacute osteomyelitis, right ankle and foot Is this a current diagnosis for this admission?: Yes (2) Foot ulcer with necrosis of bone Qualifiers: Laterality: right Qualified Code(s): 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 He is hemodynamically stable and not septic at this point. 12/19/2020 Osteomyelitis-MRI confirmed osteomyelitis of the distal fourth metatarsal as well as infection of the joint space of the metatarsal phalangeal joint and the fourth digit. There is also abscess formation in the interspace between the fourth and fifth metatarsals. There is still drainage from the lesion and it is quite tender. The patient is not diabetic. There was callus formation and this certainly could be due to pressure. The patient was providing care for the ulcer himself. He is currently on vancomycin and Zosyn. Based on the Gram stain of the culture it will be atypical polymicrobial drainage. We will continue vancomycin and Zosyn at this time. With the osteomyelitis he will either need long-term antibiotic therapy or surgical resection. Will discuss with surgery as to the best treatment plan. We do have a baseline C-reactive protein that we can follow as well. Foot ulcer with necrosis of the bone-likely there was a large callus which likely created a pressure ulcer. There is no way to be 100% sure. He is not diabetic which rules out that etiology. Surgery is consulted. Continue an tibiotics at this time. I will ask wound care to see the patient to establish with outpatient wound care. Cellulitis of right leg-the infection is focused in the foot but erythema extends to the leg. Antibiotics as above. Abscess of the foot-see description above. 12/20/2020 Postsurgical resection of fourth and fifth rays with toes. Source control of osteomyelitis/infection. The patient will still require likely 7 days antibiotics postop. Hammertoes-I reviewed the pathophysiology of how hammertoes can cause increased pressure and callus formation under the metatarsal heads. This is the most likely mechanism by which the patient developed a callus and subsequent ulceration with infection. We spoke of nonweightbearing of his right foot with the likelihood of heel weightbearing initially. I explained that a Darco offloading shoe would be very helpful. I also reviewed orthotics with the patient. Because of the anatomy he would benefit from molded insoles for his boots. This will try and evenly distribute the pressure. I also suggested that he consider podiatry visits if he in fact builds up large calluses under the metatarsal heads. We discussed how the current events should be significant motivation to take better care of his feet and himself. 12/21/2020 Postop day 1-infected bone and necrotic tissue removed from the right foot. Per surgery assessment the wound bed is clean. They are continuing moist saline gauze dressings 3 times daily. The patient should be heel weightbearing only for the time being. Unfortunately he admitted that he walks to the bathroom. He should at least have a postop shoe on. I will call the patient's nurse and request this. We discussed possible referral to the wound care center. The patient feels that he has enough support at home to change the dressings. I reminded him that it has to be done in a clean environment to prevent infection of this tissue. We will discuss further prior to discharge. Infection-thus far Proteus mirabilis and skin haily have been identified. There is a second surgical specimen that has gram-negative rods (likely the Proteus) and gram-positive cocci. It is likely I will be able to narrow the spectrum of the antibiotics. The Proteus was fairly sensitive and converting to oral antibiotic should not be a problem. Hammertoes-once again I strongly recommended the patient obtain orthotics or at least orthotic insoles. He needs to offload pressure from the metatarsal heads or he will just get more ulcers. 12/22/2020 Postop day 2 Reviewed patient with physical therapist who assessed the patient earlier today. He is able to bear weight on his heel without losing his balance with no assistive device. The C-reactive protein is down to 36 and this is mostly due to removal of the infected/necrotic tissue. He will need approximately 7 days of outpatient oral antibiotics post discharge. I reviewed the cultures. The primary organism is Proteus. There is likely skin haily as well. Keflex or Augmentin would be appropriate. There were some rales at the bases and I believe these are atelectasis. I have ordered an incentive spirometer. The patient is medically stable for discharge when cleared by surgery. - Time Time Spent with patient: Less than 15 minutes Medications reviewed and adjusted accordingly: Yes Anticipated Discharge Disposition: Home, Self Care Anticipated Discharge Timeframe: within 48 hours
--- NOTE | 2020-12-22 13:44 | PDOC PROGRESS REPORT ---
Subjective Date:: 12/22/20 Reason For Visit: CELLULITIS AND ABSCESS OF RIGHT FOOT Physical Exam Vital Signs: Temp Pulse Resp BP Pulse Ox 98.0 F 57 L 18 190/74 H 99 12/22/20 11:14 12/22/20 11:14 12/22/20 11:14 12/22/20 11:14 12/22/20 11:14 Intake & Output 12/21/20 12/22/20 12/23/20 06:59 06:59 06:59 Intake Total 4745 760 250 Output Total 600 Balance 4745 160 250 Weight 119.4 kg 119.4 kg Results Laboratory Results: 12/20/20 06:31 12/22/20 05:15 12/22/20 05:15 Sodium 137.2 Potassium 4.3 Chloride 107 Carbon Dioxide 25 Anion Gap 5 BUN 20 Creatinine 1.34 H Est GFR ( Amer) > 60 Glucose 115 H Calcium 8.7 C-Reactive Protein 36.2 H 12/20/20 13:08 Foot - Deep Wound Gram Stain - Final 12/18/20 21:15 Foot - Heel Gram Stain - Final 12/18/20 21:15 Foot - Heel Wound Culture - Final Proteus Mirabilis Skin Gavi Impressions: Foot X-Ray 12/18/20 16:53 IMPRESSION: Subluxation of the 4th metatarsal phalangeal joint. No acute osseous finding. Dorsal soft tissue swelling. Venous Doppler Study 12/18/20 16:54 IMPRESSION: NO EVIDENCE DVT OR SVT IN THE RIGHT LEG. Lower Extremity MRI 12/19/20 00:00 IMPRESSION: Osteomyelitis involving the distal 4th digit metatarsal and proximal base 4th digit proximal phalanx. Phlegmon/septic joint space at the 4th digit metatarsophalangeal joint space. Small abscess between the 4th and 5th digit metatarsals. Assessment & Plan - Diagnosis (1) Abscess of right foot including toes Is this a current diagnosis for this admission?: Yes - Time Anticipated Discharge Disposition: Home with Home Health Anticipated Discharge Timeframe: within 48 hours - Plan Summary Plan Summary: 65-year-old male status post amputation of the right fourth and fifth toe and metatarsal. His wound appears clean today, without signs of necrosis, or infection. Continue with damp to dry dressing changes twice daily. Consult social services manager for home health. Once home health is arranged, I believe it is safe for the patient to be discharged. Surgery will continue to follow with you.
[2020-12-22] MEDS: LISINOPRIL 5 MG TABLET PO SCH (14:21)
[2020-12-23] MEDS: HYDRALAZINE HCL 25 MG TABLET PO PRN ×2 (00:06→05:57)
[2020-12-23] MEDS: VANCOMYCIN HCL 1,000 MG in DEXTROSE 5%-WATER 250 ML IV SCH (01:07)
[2020-12-23] MEDS: PIPERACILLIN SODIUM/TAZOBACTAM 3.375 GM in NORMAL SALINE 100 ML IV SCH ×2 (04:16→09:33)
[2020-12-23] MEDS: KETOROLAC TROMETHAMINE INJ/PF 30 MG/1 ML SDV IV SCH ×2 (05:56→13:13)
[2020-12-23] MEDS: LISINOPRIL 5 MG TABLET PO SCH (09:33)
--- NOTE | 2020-12-23 13:11 | PDOC DISCHARGE SUMMARY ---
Impression - Admit/DC Date/PCP Admission Date/Primary Care Provider: 12/18/20 23:29 MELO SOLORIOLUCIEN Discharge Date: 12/23/20 - Discharge Diagnosis (1) Osteomyelitis Is this a current diagnosis for this admission?: Yes (2) Foot ulcer with necrosis of bone Is this a current diagnosis for this admission?: Yes (3) Cellulitis of right leg Is this a current diagnosis for this admission?: Yes (4) Abscess of right foot including toes Is this a current diagnosis for this admission?: Yes (5) Hammertoes of both feet Is this a current diagnosis for this admission?: Yes - Assessment Summary: (1) Osteomyelitis Qualifiers: Osteomyelitis type: subacute Osteomyelitis location: foot Laterality: right Qualified Code(s): M86.271 - Subacute osteomyelitis, right ankle and foot Is this a current diagnosis for this admission?: Yes (2) Foot ulcer with necrosis of bone Qualifiers: Laterality: right Qualified Code(s): 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 He is hemodynamically stable and not septic at this point. 12/19/2020 Osteomyelitis-MRI confirmed osteomyelitis of the distal fourth metatarsal as well as infection of the joint space of the metatarsal phalangeal joint and the fourth digit. There is also abscess formation in the interspace between the fourth and fifth metatarsals. There is still drainage from the lesion and it is quite tender. The patient is not diabetic. There was callus formation and this certainly could be due to pressure. The patient was providing care for the ulcer himself. He is currently on vancomycin and Zosyn. Based on the Gram stain of the culture it will be atypical polymicrobial drainage. We will continue vancomycin and Zosyn at this time. With the osteomyelitis he will either need long-term antibiotic therapy or surgical resection. Will discuss with surgery as to the best treatment plan. We do have a baseline C-reactive protein that we can follow as well. Foot ulcer with necrosis of the bone-likely there was a large callus which likely created a pressure ulcer. There is no way to be 100% sure. He is not diabetic which rules out that etiology. Surgery is consulted. Continue antibiotics at this time. I will ask wound care to see the patient to establish with outpatient wound care. Cellulitis of right leg-the infection is focused in the foot but erythema extends to the leg. Antibiotics as above. Abscess of the foot-see description above. 12/20/2020 Postsurgical resection of fourth and fifth rays with toes. Source control of osteomyelitis/infection. The patient will still require likely 7 days antibiotics postop. Hammertoes-I reviewed the pathophysiology of how hammertoes can cause increased pressure and callus formation under the metatarsal heads. This is the most likely mechanism by which the patient developed a callus and subsequent ulceration with infection. We spoke of nonweightbearing of his right foot with the likelihood of heel weightbearing initially. I explained that a Darco offloading shoe would be very helpful. I also reviewed orthotics with the patient. Because of the anatomy he would benefit from molded insoles for his boots. This will try and evenly distribute the pressure. I also suggested that he consider podiatry visits if he in fact builds up large calluses under the metatarsal heads. We discussed how the current events should be significant motivation to take better care of his feet and himself. 12/21/2020 Postop day 1-infected bone and necrotic tissue removed from the right foot. Per surgery assessment the wound bed is clean. They are continuing moist saline gauze dressings 3 times daily. The patient should be heel weightbearing only for the time being. Unfortunately he admitted that he walks to the bathroom. He should at least have a postop shoe on. I will call the patient's nurse and request this. We discussed possible referral to the wound care center. The patient feels that he has enough support at home to change the dressings. I reminded him that it has to be done in a clean environment to prevent infection of this tissue. We will discuss further prior to discharge. Infection-thus far Proteus mirabilis and skin haily have been identified. There is a second surgical specimen that has gram-negative rods (likely the Proteus) and gram-positive cocci. It is likely I will be able to narrow the spectrum of the antibiotics. The Proteus was fairly sensitive and converting to oral antibiotic should not be a problem. Hammertoes-once again I strongly recommended the patient obtain orthotics or at least orthotic insoles. He needs to offload pressure from the metatarsal heads or he will just get more ulcers. 12/22/2020 Postop day 2 Reviewed patient with physical therapist who assessed the patient earlier today. He is able to bear weight on his heel without losing his balance with no assistive device. The C-reactive protein is down to 36 and this is mostly due to removal of the infected/necrotic tissue. He will need approximately 7 days of outpatient oral antibiotics post discharge. I reviewed the cultures. The primary organism is Proteus. There is likely skin haily as well. Keflex or Augmentin would be appropriate. There were some rales at the bases and I believe these are atelectasis. I have ordered an incentive spirometer. The patient is medically stable for discharge when cleared by surgery. 12/23/2020 Reviewed with surgery. Wound is clean. Requires moist saline dressing changes twice a day at this time. The sections source removed the patient will only need 1 week of antibiotic therapy. The patient's blood pressure has been up. Will discharge on lisinopril with hydrochlorothiazide. He will follow-up with surgery. Discharge planning is trying to set up home health but this is a Workmen's Compensation case that requires special mia. - Additional Information Resuscitation Status: Full Code Discharge Diet: Cardiac Discharge Activity: Activity As Tolerated - Wear postop shoe when walking, Other - Heel weightbearing right foot only until follow-up with surgery Referrals: [facility] [Provider Group] [facility] [Provider Group] (Amputation 4th/5th toes right foot.) Prescriptions: Amoxicillin/Potassium Clav [Augmentin 875-125 Tablet] 1 tab PO Q12 7 Days #14 tablet Lisinopril/Hydrochlorothiazide [Lisinopril-Hctz 10-12.5 mg Tab] 1 each PO DAILY 30 Days #30 tablet Home Medications: Amoxicillin/Potassium Clav [Augmentin 875-125 Tablet] 1 tab PO Q12 7 Days #14 tablet 12/23/20 Lisinopril/Hydrochlorothiazide [Lisinopril-Hctz 10-12.5 mg Tab] 1 each PO DAILY 30 Days #30 tablet 12/23/20 History of Present Illiness History of Present Illness: COLEMAN STAHL is a 65 year old male who has some history of remote surgery on the right foot. He started experiencing pain and some callus formation on the plantar surface of the right foot several weeks ago. About 2 -3 weeks ago the area became open with some foul-smelling drainage and some pain. Couple days ago he was developing redness of the distal part of the right lower leg, chills and fever. He was started on broad-spectrum antibiotic in the emergency department and surgical consultation was requested by the emergency department physician. Patient is hemodynamically stable. When I arrived to see him he appeared to be comfortable after pain medication. Denied any additional complaint. Hospital Course Hospital Course: Patient's only insurance is workman compensation. We are trying to discern if this illness was related. Discharge planning is attempting to arrange home health. If related to Workmen's Compensation home health needs to contract with them separately. If not we will attempt to arrange remington visits at home. The patient assures me that he has people who will help with his dressing changes. Physical Exam Vital Signs: Temp Pulse Resp BP Pulse Ox 97.9 F 56 L 19 192/90 H 97 12/23/20 11:29 12/23/20 11:29 12/23/20 11:29 12/23/20 11:29 12/23/20 11:29 Intake & Output 12/22/20 12/23/20 12/24/20 06:59 06:59 06:59 Intake Total 760 2220 Output Total 600 Balance 160 2220 Weight 119.4 kg 122 kg General appearance: PRESENT: no acute distress, cooperative, well-developed Head exam: PRESENT: atraumatic, normocephalic Respiratory exam: PRESENT: clear to auscultation yumiko, symmetrical, unlabored. A BSENT: accessory muscle use, prolonged expiratory phas, rales, rhonchi, tachypnea, wheezes Cardiovascular exam: PRESENT: RRR, +S1, +S2. ABSENT: bradycardia, diastolic murmur, irregular rhythm, systolic murmur, tachycardia GI/Abdominal exam: PRESENT: normal bowel sounds, soft. ABSENT: tenderness Musculoskeletal exam: PRESENT: deformity - New amputation right foot fourth and fifth toes and partial amputation fourth and fifth metatarsals Neurological exam: PRESENT: alert, awake, oriented to person, oriented to place, oriented to time, oriented to situation, CN II-XII grossly intact. ABSENT: altered Psychiatric exam: PRESENT: appropriate affect. ABSENT: agitated, anxious Focused psych exam: ABSENT: delusional, paranoid, restlessness Skin exam: PRESENT: dry, normal color, warm. ABSENT: rash Results Laboratory Results: WBC 8.0 10^3/uL (4.0-10.5) 12/20/20 06:31 RBC 4.41 10^6/uL (4.35-5.55) 12/20/20 06:31 Hgb 13.4 g/dL (13.5-17.0) L 12/20/20 06:31 Hct 39.9 % (37.9-51.0) 12/20/20 06:31 MCV 91 fl (80-97) 12/20/20 06:31 MCH 30.3 pg (27.0-33.4) 12/20/20 06:31 MCHC 33.5 g/dL (32.0-36.0) 12/20/20 06:31 RDW 12.8 % (11.5-14.0) 12/20/20 06:31 Plt Count 206 10^3/uL (150-450) 12/20/20 06:31 Lymph % (Auto) 16.4 % (13-45) 12/20/20 06:31 [place] % (Auto) 11.6 % (3-13) 12/20/20 06:31 Eos % (Auto) 3.6 % (0-6) 12/20/20 06:31 Baso % (Auto) 0.9 % (0-2) 12/20/20 06:31 Absolute Neuts (auto) 5.4 10^3/uL (1.7-8.2) 12/20/20 06:31 Absolute Lymphs (auto) 1.3 10^3/uL (0.5-4.7) 12/20/20 06:31 Absolute Monos (auto) 0.9 10^3/uL (0.1-1.4) 12/20/20 06:31 Absolute Eos (auto) 0.3 10^3/uL (0.0-0.6) 12/20/20 06:31 Absolute Basos (auto) 0.1 10^3/uL (0.0-0.2) 12/20/20 06:31 Seg Neutrophils % 67.5 % (42-78) 12/20/20 06:31 Sodium 137.2 mmol/L (137-145) 12/22/20 05:15 Potassium 4.3 mmol/L (3.6-5.0) 12/22/20 05:15 Chloride 107 mmol/L (98-107) 12/22/20 05:15 Carbon Dioxide 25 mmol/L (22-30) 12/22/20 05:15 Anion Gap 5 (5-19) 12/22/20 05:15 BUN 20 mg/dL (7-20) 12/22/20 05:15 Creatinine 1.34 mg/dL (0.52-1.25) H 12/22/20 05:15 Est GFR ( Amer) > 60 (>60) 12/22/20 05:15 Est GFR (MDRD) Non-Af 54 (>60) L 12/22/20 05:15 Glucose 115 mg/dL (75-110) H 12/22/20 05:15 Hemoglobin A1c % 5.1 % (4.7-6.0) 12/18/20 16:05 Calcium 8.7 mg/dL (8.4-10.2) 12/22/20 05:15 Magnesium 1.9 mg/dL (1.6-2.3) 12/20/20 06:31 Total Bilirubin 0.8 mg/dL (0.2-1.3) 12/18/20 16:05 Direct Bilirubin 0.2 mg/dL (0.0-0.4) 12/18/20 16:05 Neonat Total Bilirubin Not Reportable 12/18/20 16:05 Neonat Direct Bilirubin Not Reportable 12/18/20 16:05 Neonat Indirect Bili Not Reportable 12/18/20 16:05 AST 49 U/L (17-59) 12/18/20 16:05 ALT 46 U/L (<50) 12/18/20 16:05 Alkaline Phosphatase 96 U/L (38-126) 12/18/20 16:05 C-Reactive Protein 36.2 mg/L (<10.0) H 12/22/20 05:15 Total Protein 6.9 g/dL (6.3-8.2) 12/18/20 16:05 Albumin 3.6 g/dL (3.5-5.0) 12/18/20 16:05 Time Trough Drawn 1702 12/22/20 17:02 Vancomycin Trough 23.0 ug/mL (5.0-20.0) H 12/22/20 17:02 Influenza A (RT-PCR) NEGATIVE (NEGATIVE) 12/19/20 00:37 Influenza B (RT-PCR) NEGATIVE (NEGATIVE) 12/19/20 00:37 RSV (RT-PCR) NEGATIVE (NEGATIVE) 12/19/20 00:37 SARS-CoV-2 Rap RNA(RT-PCR) NEGATIVE (NEGATIVE) 12/19/20 00:37 Impressions: Foot X-Ray 12/18/20 16:53 IMPRESSION: Subluxation of the 4th metatarsal phalangeal joint. No acute osseous finding. Dorsal soft tissue swelling. Venous Doppler Study 12/18/20 16:54 IMPRESSION: NO EVIDENCE DVT OR SVT IN THE RIGHT LEG. Lower Extremity MRI 12/19/20 00:00 IMPRESSION: Osteomyelitis involving the distal 4th digit metatarsal and proximal base 4th digit proximal phalanx. Phlegmon/septic joint space at the 4th digit metatarsophalangeal joint space. Small abscess between the 4th and 5th digit metatarsals. Plan Health Concerns: Partial amputation and patient known for limited compliance. Plan of Treatment: Antibiotics to complete therapy at home. Antihypertensive medication for ongoing blood pressure control. Blood pressure may have been an acute issue while hospitalized. [facility] and treatment. Goals: Complete healing of right foot amputation area. Establish with primary care provider Time Spent: Greater than 30 Minutes Stroke Is this a Stroke Patient?: No Acute Heart Failure Is this a Heart Failure Patient?: No
--- NOTE | 2020-12-23 13:12 | PDOC PROGRESS REPORT ---
Subjective Date:: 12/23/20 Reason For Visit: CELLULITIS AND ABSCESS OF RIGHT FOOT Physical Exam Vital Signs: Temp Pulse Resp BP Pulse Ox 97.9 F 56 L 19 192/90 H 97 12/23/20 11:29 12/23/20 11:29 12/23/20 11:29 12/23/20 11:29 12/23/20 11:29 Intake & Output 12/22/20 12/23/20 12/24/20 06:59 06:59 06:59 Intake Total 760 2220 Output Total 600 Balance 160 2220 Weight 119.4 kg 122 kg Results Laboratory Results: 12/20/20 06:31 12/22/20 05:15 12/20/20 13:08 Foot - Deep Wound Gram Stain - Final 12/20/20 13:08 Foot - Deep Wound Wound Culture - Final Proteus Mirabilis Staph Coagulase Negative Proteus Vulgaris Impressions: Foot X-Ray 12/18/20 16:53 IMPRESSION: Subluxation of the 4th metatarsal phalangeal joint. No acute osseous finding. Dorsal soft tissue swelling. Venous Doppler Study 12/18/20 16:54 IMPRESSION: NO EVIDENCE DVT OR SVT IN THE RIGHT LEG. Lower Extremity MRI 12/19/20 00:00 IMPRESSION: Osteomyelitis involving the distal 4th digit metatarsal and proximal base 4th digit proximal phalanx. Phlegmon/septic joint space at the 4th digit metatarsophalangeal joint space. Small abscess between the 4th and 5th digit metatarsals. Assessment & Plan - Diagnosis (1) Abscess of right foot including toes Is this a current diagnosis for this admission?: Yes - Time Anticipated Discharge Disposition: unknown Anticipated Discharge Timeframe: unknown - Plan Summary Plan Summary: 65-year-old male status post amputation of the right fourth and fifth toe and metatarsal. He appears to be doing well. Continue with damp to dry dressing changes twice daily.
[2020-12-23 13:23] VITALS: BP 203/84
[2020-12-23] MEDS ORDERED: VANCOMYCIN HCL 1,250 MG in DEXTROSE 5%-WATER 250 ML IV SCH (22:00)
== END 2020-12-23 13:55 | disposition home or self-care (01) | DRG 504 ==
LOC: ER 16:35 → EH 23:29 → 4W 12-19 02:29
PROVIDERS: ADMIT Internal Medicine; ATTEND Hospitalist
PROC: 0Y6X0Z0 Detachment at Right 5th Toe, Complete, Open Approach (ICD-10-PCS; 2020-12-20)
PROC: 0Y6V0Z0 Detachment at Right 4th Toe, Complete, Open Approach (ICD-10-PCS; principal; 2020-12-20 12:30)
DX: M86.271 Subacute osteomyelitis, right ankle and foot (principal); L03.115 Cellulitis of right lower limb; L02.611 Cutaneous abscess of right foot; M20.42 Other hammer toe(s) (acquired), left foot; M20.41 Other hammer toe(s) (acquired), right foot; L97.514 Non-pressure chronic ulcer of other part of right foot with necrosis of bone; B96.4 Proteus (mirabilis) (morganii) as the cause of diseases classified elsewhere; F17.210 Nicotine dependence, cigarettes, uncomplicated; Z20.822 Contact with and (suspected) exposure to COVID-19
CPT/HCPCS: 01480; 36415; 80048; 80053; 80202; 83036; 83735; 85025; 86140; 87040; 87070; 87075; 87077; 87186; 87205; 88305; 88311; 90471; 90715; 93971; 94799; 96365; 96367; 96375; 99285; 0241U; A9576; C9803; J1100; J1885; J2250; J2405; J2543; J2704; J2765; J3010; J3370; J3490; J7030; J7050; J7060